=== PATIENT | female | born 2000 | race Two or more races ===

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

== ENCOUNTER 2021-02-22 20:41 | Emergency (ER) | payer BC, OTHER ==
[~2021-02-22] VITALS: Ht 152.4 cm; Wt 42.3 kg
[~2021-02-22 20:41] MED LIST: FAMO-63 PO; ONDA4TAB10 SL
[2021-02-22 21:23] LABS: BASO # 0.1 x10^3/uL (0.0-0.2); BASO % 1 % (0-3); EOS # 0.2 x10^3/uL (0.0-0.7); EOS % 2 % (0-3); HEMATOCRIT 40.9 % (36.0-47.0); HEMOGLOBIN 13.5 g/dL (12.0-15.5); LYMPH # 2.2 x10^3/uL (1.0-4.8); LYMPH % 20 % (24-48); MEAN CORPUSCULAR HEMOGLOBIN 27 pg (25-35); MEAN CORPUSCULAR HGB CONC 33 g/dL (31-37); MEAN CORPUSCULAR VOLUME 80 fL (79-100); MONO # 0.9 x10^3/uL (0.0-1.1); MONO % 8 % (0-9); NEUT # 7.6 x10^3/uL (1.8-7.7); NEUT % 69 % (31-73); PLATELET COUNT 297 x10^3/uL (140-400); RED BLOOD COUNT 5.08 x10^6/uL (3.50-5.40); RED CELL DISTRIBUTION WIDTH 12.6 % (11.5-14.5)
[2021-02-22 21:25] LABS: BILIRUBIN,URINE NEGATIVE (NEG); CLARITY,URINE CLEAR; COLOR,URINE YELLOW; NITRITE,URINE NEGATIVE (NEG); PROTEIN,URINE 30 mg/dL (NEG-TRACE); UROBILINOGEN,URINE 0.2 mg/dL (0.2 mg/dL)
--- NOTE | 2021-02-22 21:25 | PHYS DOC ---
Past Medical History Past Medical History: No Pertinent History Past Surgical History: No Surgical History Smoking Status: Never Smoker Alcohol Use: None Drug Use: None Adult General Chief Complaint Chief Complaint: ABDOMINAL PAIN HPI HPI The patient is a 20-year-old female with no significant past medical history and no past surgical history. She presents for evaluation of focal, sharp, constant right lower quadrant abdominal discomfort with radiation to the right low back (a little lower than the flank) all with onset this morning after awakening and persistent since then. Sharp and stabbing in character. Does seem somewhat reproducible to direct palpation of the right lower quadrant. Patient has never had this pain before. She states that 3 days ago she did have some dysuria and gross hematuria which then resolved and have not recurred. No associated fevers, nausea or vomiting, upper respiratory congestion/rhinorrhea, cough, sore throat, shortness of breath or chest pain of any kind, upper or left-sided abdominal pain of any kind, midline back pain, polyuria or oliguria, unusual vaginal discharge or bleeding (last period was 3 weeks ago and was normal in length and character), changes in bowel habits. Patient is alert and pleasantly appropriately interactive and in no acute distress with completely appropriate vital signs upon initial evaluation here in the emergency department. She visited an urgent care prior to arrival which referred her here for further evaluation and treatment Review of Systems Review of Systems A 12 point review of systems was completed and was negative except for noted in HPI above Current Medications Current Medications Current Medications Medications (Trade) Dose Ordered Sig/Palomo Start Time Stop Time Status Last Admin Dose Admin Fentanyl Citrate (Fentanyl 2ml Vial) 50 mcg 1X ONCE 02/22/21 21:30 02/22/21 21:31 DC 02/22/21 21:23 50 MCG Ketorolac Tromethamine (Toradol 15mg Vial) 15 mg 1X ONCE 02/22/21 21:30 02/22/21 21:31 DC 02/22/21 21:22 15 MG Ondansetron HCl (Zofran) 4 mg 1X ONCE 02/22/21 21:30 02/22/21 21:31 DC 02/22/21 21:22 4 MG Potassium Chloride (Klor-Con) 40 meq 1X ONCE 02/22/21 22:00 02/22/21 22:01 DC Sodium Chloride 1,000 ml @ 1,000 mls/hr 1X ONCE 02/22/21 21:30 02/22/21 22:29 02/22/21 21:22 1,000 MLS/HR Allergies Allergies Allergies Coded Allergies Type Severity Reaction Last Updated Verified No Known Drug Allergies 08/06/16 No Physical Exam Physical Exam 20-year-old female appearing nontoxic and in no acute distress. Head is normocephalic and atraumatic. Neck is supple and nontender. Oropharynx is moist. Lungs are clear to auscultation at all stations. There is normal S1 and S2 without rubs or gallops and capillary refill is appropriate, less than 2 seconds globally. Abdomen is soft, nondistended and with mild right lower quadrant tenderness to palpation without rebound or guarding. Skin is warm and dry without cyanosis, clubbing or edema. Psychiatrically, the patient demonstrates appropriate mood and affect and is alert. Current Patient Data Vital Signs Vital Signs Date Time Temp Pulse Resp B/P (MAP) Pulse Ox O2 Delivery O2 Flow Rate FiO2 02/22/21 21:23 18 100 Room Air Lab Values Laboratory Tests Test 02/22/21 20:53 02/22/21 21:15 POC Urine HCG, Qualitative Hcg negative (Negative) White Blood Count 11.0 x10^3/uL (4.0-11.0) Red Blood Count 5.08 x10^6/uL (3.50-5.40) Hemoglobin 13.5 g/dL (12.0-15.5) Hematocrit 40.9 % (36.0-47.0) Mean Corpuscular Volume 80 fL (79-100) Mean Corpuscular Hemoglobin 27 pg (25-35) Mean Corpuscular Hemoglobin Concent 33 g/dL (31-37) Red Cell Distribution Width 12.6 % (11.5-14.5) Platelet Count 297 x10^3/uL (140-400) Neutrophils (%) (Auto) 69 % (31-73) Lymphocytes (%) (Auto) 20 % (24-48) L Monocytes (%) (Auto) 8 % (0-9) Eosinophils (%) (Auto) 2 % (0-3) Basophils (%) (Auto) 1 % (0-3) Neutrophils # (Auto) 7.6 x10^3/uL (1.8-7.7) Lymphocytes # (Auto) 2.2 x10^3/uL (1.0-4.8) Monocytes # (Auto) 0.9 x10^3/uL (0.0-1.1) Eosinophils # (Auto) 0.2 x10^3/uL (0.0-0.7) Basophils # (Auto) 0.1 x10^3/uL (0.0-0.2) Urine Collection Type Unknown Urine Color Yellow Urine Clarity Clear Urine pH 7.0 (<5.0-8.0) Urine Specific [place] 1.015 (1.000-1.030) Urine Protein 30 mg/dL (NEG-TRACE) Urine Glucose (UA) Negative mg/dL (NEG) Urine Ketones (Stick) Negative mg/dL (NEG) Urine Blood Large (NEG) Urine Nitrite Negative (NEG) Urine Bilirubin Negative (NEG) Urine Urobilinogen Dipstick 0.2 mg/dL (0.2 mg/dL) Urine Leukocyte Esterase Moderate (NEG) Urine RBC >40 /HPF (0-2) Urine WBC >40 /HPF (0-4) Urine Squamous Epithelial Cells Mod /LPF Urine Bacteria 0 /HPF (0-FEW) Urine Mucus Mod /LPF Sodium Level 139 mmol/L (136-145) Potassium Level 3.0 mmol/L (3.5-5.1) L Chloride Level 103 mmol/L (98-107) Carbon Dioxide Level 28 mmol/L (21-32) Anion Gap 8 (6-14) Blood Urea Nitrogen 10 mg/dL (7-20) Creatinine 0.7 mg/dL (0.6-1.0) Estimated GFR (Cockcroft-Gault) 104.6 BUN/Creatinine Ratio 14 (6-20) Glucose Level 130 mg/dL (70-99) H Calcium Level 8.5 mg/dL (8.5-10.1) Total Bilirubin 0.1 mg/dL (0.2-1.0) L Aspartate Amino Transferase (AST) 14 U/L (15-37) L Alanine Aminotransferase (ALT) 18 U/L (14-59) Alkaline Phosphatase 59 U/L (46-116) Total Protein 7.6 g/dL (6.4-8.2) Albumin 3.6 g/dL (3.4-5.0) Albumin/Globulin Ratio 0.9 (1.0-1.7) L Laboratory Tests 02/22/21 21:15 Laboratory Tests 02/22/21 21:15 EKG EKG [] Radiology/Procedures Radiology/Procedures [] Course & Med Decision Making Course & Med Decision Making 20-year-old female here with right lower quadrant pain radiating to the right low back. Location seems a little atypical for acute appendicitis, a little higher than McJoaney's point. Does seem reproducible however. Did have some hematuria a few days ago and had blood in the urine and no other acute findings on urine dip at the urgent care. Will place IV and give IV fluids and medication for discomfort and nausea as noted and will check basic labs, urine, urine and advanced imaging as noted. We will then reevaluate. 2213: Patient resting very comfortably in no acute distress on reassessment. Reports her discomfort is very well controlled after medication. Labs unremarkable aside from evidence of urinary tract infection. CT imaging of the abdomen and pelvis unremarkable aside from evidence of right-sided perinephric stranding, in context likely reflective of urinary tract infection. Overall scenario is most compatible with mild pyelonephritis. Will give a dose of Rocephin here and plan for discharge home with cefdinir. Ibuprofen as needed for pain. Patient is to follow-up closely with primary care in the next 2 to 4 days and understands that if she feels worse instead of better or develops other new symptoms of concern that she will need to return to the emergency dep artment immediately for reevaluation. All questions are answered. Dragon Disclaimer Dragon Disclaimer This electronic medical record was generated, in whole or in part, using a voice recognition dictation system. Departure Departure Impression: Primary Impression: Acute pyelonephritis Disposition: HOME / SELF CARE / HOMELESS Condition: IMPROVED Referrals: NO PCP (PCP) Patient Instructions: Pyelonephritis, Adult Additional Instructions: Follow-up very closely with your primary care doctor in the office in the next 2 to 4 days for a reevaluation of your symptoms and to discussion of next best steps in care. Drink lots of fluids and get plenty of rest. Take a 600 mg ibup rofen every 6 hours as needed for discomfort. You may take a 500 mg extract Tylenol every 6 hours as needed for discomfort as well. Take the cefdinir antibiotic twice a day as prescribed for the next 7 days to treat your urinary tract infection. Make sure to take all antibiotic and do not leave any left over! Return to the emergency department right away for worsening symptoms of any kind or with any other new symptoms of concern. Scripts Acetaminophen (ACETAMINOPHEN) 500 Mg Tablet 1 TAB PO PRN Q6HRS PRN for pain or fever, #50 TAB 0 Refills Prov: KELLIE PATE MD 02/22/21 Ibuprofen (IBUPROFEN) 600 Mg Tablet 600 MG PO PRN Q6HRS PRN for PAIN, #24 TAB take with food or milk Prov: KELLIE PATE MD 02/22/21 Cefdinir (CEFDINIR) 300 Mg Capsule 1 CAP PO BID for 7 Days, #14 CAP Prov: KELLIE PATE MD 02/22/21 KELLIE PATE MD Feb 22, 2021 21:25
[2021-02-22] MEDS ORDERED: IV NORMAL SALINE 1000ML BAG 1,000 ML IV ONE (21:30)
[2021-02-22] MEDS ORDERED: fentaNYL PF VIAL 100 MCG/2 ML VIAL IVP ONE (21:30)
[2021-02-22] MEDS ORDERED: KETOROLAC 15 MG/ML VIAL. IVP ONE (21:30)
[2021-02-22] MEDS ORDERED: ONDANSETRON PF 4 MG/2 ML VIAL. IVP ONE (21:30)
[2021-02-22 21:31] LABS: BACTERIA,URINE 0 /HPF (0-FEW); RBC,URINE >40 /HPF (0-2); WBC,URINE >40 /HPF (0-4)
[2021-02-22 21:32] LABS: CALCIUM 8.5 mg/dL (8.5-10.1); CREATININE 0.7 mg/dL (0.6-1.0); GFR 104.6
[2021-02-22 21:38] LABS: ALBUMIN 3.6 g/dL (3.4-5.0); ALBUMIN/GLOBULIN RATIO 0.9 (1.0-1.7); TOTAL BILIRUBIN 0.1 mg/dL (0.2-1.0); TOTAL PROTEIN 7.6 g/dL (6.4-8.2)
[2021-02-22] MEDS ORDERED: POTASSIUM CHLORIDE 20 MEQ TABLET.ER. PO ONE (22:00)
--- NOTE | 2021-02-22 22:02 | RAD ---
Exam: CT of abdomen and pelvis without contrast INDICATION: Right lower quadrant abdominal pain TECHNIQUE: Sequential axial images through the abdomen and pelvis obtained without IV contrast. Sagit wai and coronal reformatted images were reconstructed from the axial data and reviewed. Exposure: One or more of the following in the visualized dose reduction techniques were utilized for this examination: 1. Automated exposure control 2. Adjustment of the MA and/or KV according to patient size 3. Use of iterative of reconstructive technique Comparisons: None FINDINGS: Heart size is normal. No pericardial effusion. Visualized lung bases are clear. No pleural effusion. Evaluation solid organs is limited secondary to noncontrast technique. Liver, spleen, pancreas, gallbladder and adrenals are unremarkable. Mild right-sided perinephric stranding. No hydronephrosis. No renal or ureteral calculi are identifie d. Large and small bowel are unremarkable. Appendix is normal. No free intra-abdominal air or fluid. No obstruction. Abdominal aorta has normal course and caliber. No enlarged intra-abdominal lymph nodes are identified. No suspicious osseous lesions or acute fractures. IMPRESSION: 1. Mild right-sided perinephric stranding. No renal or ureteral calculi. Correlate with urinalysis f or infection. 2. Normal appendix Electronically signed by: Nolvia Simpson MD (02/22/2021 10:00 PM) [facility]
[2021-02-22] MEDS ORDERED: IBUP-1007 PO (22:21)
[2021-02-22] MEDS ORDERED: CEFD300C PO (22:21)
[2021-02-22] MEDS ORDERED: ACET500T68 PO (22:21)
[2021-02-22 22:30] VITALS: BP 105/63
[2021-02-22] MEDS ORDERED: cefTRIAXone IV Push 1 GM VIAL. IVP ONE (22:30)
== END 2021-02-22 22:51 | disposition home or self-care (01) ==
LOC: ER 20:41
DX: N10 Acute pyelonephritis (principal)
CPT/HCPCS: 36415; 74176; 80053; 81001; 81025; 85025; 87086; 96361; 96374; 96375; 99284; J0696; J1885; J2405; J3010; J7030; 87077; 87186

== ENCOUNTER 2021-06-04 20:29 | Emergency (ER) | payer BC ==
[~2021-06-04] VITALS: Ht 152.4 cm; Wt 42.6 kg
[~2021-06-04 20:29] MED LIST changes: +ACET500T68 PO; +CEFD300C PO; +IBUP-1007 PO
[2021-06-04 21:49] VITALS: BP 123/71
[2021-06-04 22:12] LABS: U PREG PATIENT NEGATIVE (NEG)
[2021-06-04 22:13] LABS: BILIRUBIN,URINE NEGATIVE (NEG); CLARITY,URINE HAZY; COLOR,URINE YELLOW; NITRITE,URINE NEGATIVE (NEG); PH,URINE 8.5 (<5.0-8.0); PROTEIN,URINE NEGATIVE (NEG-TRACE); UROBILINOGEN,URINE 0.2 mg/dL (0.2 mg/dL)
[2021-06-04 22:15] LABS: BACTERIA,URINE FEW /HPF (0-FEW)
--- NOTE | 2021-06-04 22:37 | RAD ---
EXAMINATION: CT ABDOMEN+PELVIS WO CLINICAL HISTORY: Right flank pain. TECHNIQUE: Imaging of the abdomen and pelvis was performed without intravenous contrast using standar d technique, scanning from just above the dome of the diaphragm to the symphysis pubis. Unenhanced i maging is limited for the evaluation of some intra-abdominal and pelvic pathology. CT Dose Reduction Employed: One or more of the following individualized dose reduction techniques wer e utilized for this examination: 1. Automated exposure control 2. Adjustment of the mA and/or kV ac cording to patient size 3. Use of iterative reconstruction technique. COMPARISON: 02/22/2021 FINDINGS: Visualized heart and lungs unremarkable. Liver, gallbladder, pancreas, spleen, and adrenal glands unremarkable. Kidneys unremarkable. No urolithiasis or evidence of obstructive uropathy. Nondistended urinary bladder suboptimally evaluated. Uterus and ovaries unremarkable on limited evalu ation. No dilated bowel. Appendix with small appendicolith, stable in appearance. No abdominal aortic or iliac artery aneurysm. No evidence of acute osseous abnormality. IMPRESSION: No evidence of acute abdominopelvic abnormality. No urolithiasis or evidence of obstructive uropathy. Electronically signed by: Salty Holman DO (06/04/2021 10:34 PM) [facility]
--- NOTE | 2021-06-04 22:41 | PHYS DOC ---
Past Medical History Past Medical History: No Pertinent History Past Surgical History: No Surgical History Smoking Status: Never Smoker Alcohol Use: None Drug Use: None General Adult EDM: Chief Complaint: FLANK PAIN HPI: HPI: 21 yo female who denies any past medical history, presents to the ED with complaints of flank pain, suprapubic pain, dysuria and right pelvic pain for the past week. States this feels similar to her kidney infection that she was diagnosed here 3 months ago. Was prescribed antibiotics for 1 week here and her primary care physician gave her an additional 1 week of the same antibiotic. Reports history of for urinary tract infections and was told by her primary care physician she needs to see a kidney specialist for kidney infections. Sexually active, monogamous with her . Had negative STI testing at 1 year ago. Declines STI testing due to financial reasons. Reports no associated hematuria, fever, chills, nausea, vomiting, vaginal bleeding, dyspareunia, abnormal vaginal discharge itching or odor. Review of Systems: Review of Systems: Constitutional: Denies fever or chills. [] Eyes: Denies change in visual acuity. [] HENT: Denies nasal congestion or sore throat. [] Respiratory: Denies cough or shortness of breath. [] Cardiovascular: Denies chest pain or edema. [] GI: Denies abdominal pain, nausea, vomiting, bloody stools or diarrhea. [] : Denies vaginal bleeding or odor Musculoskeletal: Denies midline back pain or joint pain. [] Integument: Denies rash or diaphoresis Neurologic: Denies headache, focal weakness or sensory changes. [] Endocrine: Denies polyuria or polydipsia. [] Lymphatic: Denies swollen glands. [] Psychiatric: Denies depression or anxiety. [] Heart Score: C/O Chest Pain: No Risk Factors: Risk Factors: DM, Current or recent (<one month) smoker, HTN, HLP, family his tory of CAD, obesity. Risk Scores: Score 0 - 3: 2.5% MACE over next 6 weeks - Discharge Home Score 4 - 6: 20.3% MACE over next 6 weeks - Admit for Clinical Observation Score 7 - 10: 72.7% MACE over next 6 weeks - Early Invasive Strategies Allergies: Allergies: Allergies Coded Allergies Type Severity Reaction Last Updated Verified No Known Drug Allergies 06/04/21 No Physical Exam: PE: Constitutional: Well developed, well nourished, no acute distress, non-toxic appearance. HENT: Normocephalic, atraumatic, Eyes: EOMI, conjunctiva normal, no discharge. Neck: Normal range of motion, supple, Cardiovascular: S1/2 present, regular rhythm Lungs & Thorax: Speaking in full sentences, bilateral equal chest rise, no tachypnea or increased work of breathing Abdomen: soft, no McBurney's point tenderness, no Lane sign, pain is in the right pelvic region Skin: Warm, dry, no erythema, no rash. [] Back: No midline tenderness, right CVA tenderness. [] Extremities: No tenderness, no cyanosis, no lower extremity edema Neurologic: Alert and oriented X 3, normal motor function, normal sensory function, no focal deficits noted. [] Psychologic: Affect normal, judgement normal, mood normal. [] Pelvic: Chaperoned by RN, external genitalia normal, no vaginal bleeding, normal nonmalodorous discharge, cervical os closed, no cervical erythema, tolerated exam well Current Patient Data: Labs: Laboratory Tests Test 06/04/21 21:50 06/04/21 21:58 Urine Collection Type Unknown Urine Color Yellow Urine Clarity Hazy Urine pH 8.5 (<5.0-8.0) Urine Specific [place] 1.015 (1.000-1.030) Urine Protein Negative mg/dL (NEG-TRACE) Urine Glucose (UA) Negative mg/dL (NEG) Urine Ketones (Stick) Negative mg/dL (NEG) Urine Blood Trace (NEG) Urine Nitrite Negative (NEG) Urine Bilirubin Negative (NEG) Urine Urobilinogen Dipstick 0.2 mg/dL (0.2 mg/dL) Urine Leukocyte Esterase Small (NEG) Urine RBC 6-10 /HPF (0-2) Urine WBC 11-20 /HPF (0-4) Urine Squamous Epithelial Cells Few /LPF Urine Bacteria Few /HPF (0-FEW) Urine Test Negative (NEG) POC Urine HCG, Qualitative Hcg negative (Negative) Vital Signs: Vital Signs Date Time Temp Pulse Resp B/P (MAP) Pulse Ox O2 Delivery O2 Flow Rate FiO2 06/04/21 21:49 99.5 73 18 123/71 (88) 98 Room Air 99.5 EKG: EKG: [] Radiology/Procedures: Radiology/Procedures: IMAGING REPORT Signed PATIENT: GUY CHRIS ACCOUNT: [id number] : 2000 LOCATION: ER AGE: 21 SEX: F EXAM STATUS: REG ER ORD. PHYSICIAN: NOE PAT DO REASON: r flank pain PROCEDURE: CT ABDOMEN PELVIS WO CONTRAST EXAMINATION: CT ABDOMEN+PELVIS WO CLINICAL HISTORY: Right flank pain. TECHNIQUE: Imaging of the abdomen and pelvis was performed without intravenous contrast using standard technique, scanning from just above the dome of the diaphragm to the symphysis pubis. Unenhanced imaging is limited for the evaluation of some intra-abdominal and pelvic pathology. CT Dose Reduction Employed: One or more of the following individualized dose reduction techniques were utilized for this examination: 1. Automated exposure control 2. Adjustment of the mA and/or kV according to patient size 3. Use of iterative reconstruction technique. COMPARISON: 02/22/2021 FINDINGS: Visualized heart and lungs unremarkable. Liver, gallbladder, pancreas, spleen, and adrenal glands unremarkable. Kidneys unremarkable. No urolithiasis or evidence of obstructive uropathy. Nondistended urinary bladder suboptimally evaluated. Uterus and ovaries unremarkable on limited evaluation. No dilated bowel. Appendix with small appendicolith, stable in appearance. No abdominal aortic or iliac artery aneurysm. No evidence of acute osseous abnormality. IMPRESSION: No evidence of acute abdominopelvic abnormality. No urolithiasis or evidence of obstructive uropathy. Electronically signed by: Salty Calvillo DO (06/04/2021 10:34 PM) [facility] DICTATED and SIGNED BY: SALTY CALVILLO DO DATE: 06/04/21 [id number] 0 Course & Med Decision Making: Course & Med Decision Making Pertinent Labs and Imaging studies reviewed. (See chart for details) Concern for urinary tract infection that I suspect has extended into the bladder and possible right ureter. CT imaging with no perinephric stranding or nephrolithiasis. Urinalysis consistent with urinary tract infection and hematuria. Patient with no active vaginal bleeding on exam. Suspect hematuria is from ascending infection. EMR was reviewed and patient was treated with cefdinir in February. Microbiology reviewed and patient was susceptible to cephalosporins. Will prescribe Vantin and Azo. Patient is well-appearing, - tolerated abdominal pain with no grimace or obvious distress. Will discharge home with strict ED return precautions were given for worsening pain, fever, n ausea, vomiting or flulike symptoms. Encouraged urgent outpatient follow-up with PMD for reevaluation in 2 weeks, consider urology evaluation given history of recurrent UTIs (may benefit from urethrogram). Life-threatening processes were considered but are low suspicion at this time, given history, physical exam and ED workup. Pt was educated on all prescription medications and adverse effects. All patient's questions were answered and pt was stable at time of discharge. Life/limb-threatening differential includes but is not limited to, ectopic , septic , sepsis/infection (endometritis, sti/pid, cystitis, pyelonephritis, Dex's gangrene or necrotizing fasciitis, abscess), ovarian torsion, ruptured hemorrhagic ovarian cyst, endometriosis, ureterolithiasis, thrombophlebitis, hemorrhage/DIC, organ prolapse, abdominal aortic aneurysm, mesenteric ischemia, neoplasm, bowel obstruction or surgical abdomen. I have spoken with the patient and/or caregivers. I explained the patient's condition, diagnoses and treatment plan based on the information available to me at this time. I have answered the patient and/or caregiver's questions and addressed any concerns. The patient and/or caregivers have a good understanding of patient's diagnosis, condition and treatment plan as can be expected at this point. Vital signs have been stable. Patient's condition is stable and a ppropriate for discharge from the emergency department. Patient will pursue further outpatient evaluation with primary care physician or other designated or consulting physician as outlined in the discharge instructions. The patient and/or caregivers are agreeable to this plan of care and follow-up instructions have been explained in detail. The patient and/or caregivers have received these instructions in written form and have expressed an understanding of the discharge instructions. The patient and/or caregivers are aware that any significant change of condition or worsening of symptoms should prompt immediate return to this or the closest emergency department or call to 911. Juan Disclaimer: Juan Disclaimer: This electronic medical record was generated, in whole or in part, using a voice recognition dictation system. Departure Departure Impression: Primary Impression: UTI (urinary tract infection) Additional Impression: Cystitis Disposition: HOME / SELF CARE / HOMELESS Condition: STABLE Referrals: UNKNOWN PCP NAME (PCP) Follow-up with your primary care physician in 24 to 48 hours OR FOLLOW UP WITH FAMILY MEDICINE: [address] [place] [address] Patient Instructions: Urinary Tract Infection Additional Instructions: FOLLOW UP WITH UROLOGY: FOR DEFINITIVE MANAGEMENT of recurrent UTIs [facility] [address] [place] [address] [place] [address] [address] [place], [place] [id number] [facility] [place] [address] [place] [address] EMERGENCY DEPARTMENT GENERAL DISCHARGE INSTRUCTIONS Thank you for coming to [facility] Emergency Department (ED) today and trusting us with you care. We trust that you had a positive experience in our Emergency Department. If you wish to speak to the department management, you may call the Director at [phone]. YOUR FOLLOW UP INSTRUCTIONS ARE FOLLOWS: 1. Do you have a private Doctor? If you do not have a private doctor, please ask for a resource list of physicians or clinics that may be able to assist you with follow up care. 2. The Emergency Physicain has interpreted your x-rays. The X-Ray specialist will also review them. If there is a change in the findings, you will be notified in 48 hours when at all possible. 3. A lab test or culture has been done, your results will be reviewed and you will be notified if you need a change in treatment. ADDITIONAL INSTRUCTIONS AND INFORMATION: 1. Your care today has been supervised by a physician who is specially trained in emergency care. Many problems require more than one evaluation for a complete diagnosis and treatment. We recommend that you schedule your follow up appointment as recommended to ensure complete treatment of you illness or injury. If you are unable to obtain follow up care and continue to have a problem, or if your condition worsens, we recommend that you return to the ED. 2. We are not able to safely determine your condition over the phone nor are we able to give sound medical advice over the phone. For these safety reasons, if you call for medical advice we will ask you to come to the ED for further evaluation. 3. If you have any questions regarding these discharge instructions please call the ED at [phone]. SAFETY INFORMATION: In the interest of safety, wellness, and injury prevention; we encourage you to wear your sealbelt, if you smoke; quite smoking, and we encourage family to use a protective helmet for bicycling and other sporting events that present an increased risk for head injury. IF YOUR SYMPTOMS WORSEN OR NEW SYMPTOMS DEVELOP, OR YOU HAVE CONCERNS ABOUT YOUR CONDITION; OR IF YOUR CONDITION WORSENS WHILE YOU ARE WAITING FOR YOUR FOLLOW UP APPOINTMENT; EITHER CONTACT YOUR PRIMARY CARE DOCTOR, THE PHYSICIAN WHOSE NAME AND NUMBER YOU WERE GIVEN, OR RETURN TO THE ED IMMEDIATELY. Scripts Pumpkin Seed Extract/Soy Germ (Azo Bladder Control Capsule) 300 Mg Capsule 1 CAP PO BID for 2 Days, #4 CAP 0 Refills Prov: NOE PAT DO 06/05/21 Cefpodoxime Proxetil (CEFPODOXIME PROXETIL) 200 Mg Tablet 1 TAB PO BID for 14 Days, #28 TAB Prov: NOE PAT DO 06/05/21 NOE PAT DO Jun 04, 2021 22:41
[2021-06-05] MEDS ORDERED: CEFP200T PO (00:09)
[2021-06-05] MEDS ORDERED: PUMP300C PO (00:09)
== END 2021-06-05 00:36 | disposition home or self-care (01) ==
LOC: ER 20:29
DX: N30.90 Cystitis, unspecified without hematuria (principal)
CPT/HCPCS: 74176; 81001; 81025; 87077; 87086; 87186; 99284-25